=== PATIENT | female | born 1995 | race Caucasian/White ===

== ENCOUNTER 2020-03-21 16:08 | Emergency (ER) | payer OTHER ==
--- NOTE | 2020-03-21 16:47 | EDPHYS ---
Physician Documentation [facility] Name: Bj Green Age: 24 yrs Sex: Female : 1995 Arrival Date: 03/21/2020 Time: 16:11 Bed 11 Private MD: ED Physician Frank Rosenberg HPI: 03/21 17:06 This 24 yrs old Female presents to ER via Ambulatory with complaints of Wrist Injury. snw 17:06 The patient or guardian reports decreased range of motion, pain. The complaints affect snw the right wrist diffusely. Context: The problem was sustained at home, resulted from lifting or pulling, a heavy object, a repetitive motion. Onset: The symptoms/episode began/occurred suddenly, 4 day(s) ago, and became worse and became persistent. Associated signs and symptoms: Pertinent positives: tingling distally, swelling. The patient has not experienced similar symptoms in the past. It is unknown whether or not the patient has recently seen a physician. pt was moving furniture and heavy objects over the weekend. Historical: - Allergies: 16:26 No Known Allergies; ss - Home Meds: 16:26 control [Active]; ss - PMHx: 16:26 None; ss - PSHx: 16:26 None; ss - Immunization history:: Adult Immunizations unknown. - Social history:: Smoking status: Patient denies any tobacco usage or history of. ROS: 16:54 Constitutional: Negative for fever, chills, and weight loss, Eyes: Negative for injury, snw pain, redness, and discharge, ENT: Negative for injury, pain, and discharge, Neck: Negative for injury, pain, and swelling, Cardiovascular: Negative for chest pain, palpitations, and edema, Respiratory: Negative for shortness of breath, cough, wheezing, and pleuritic chest pain, Abdomen/GI: Negative for abdominal pain, nausea, vomiting, diarrhea, and constipation, Back: Negative for injury and pain, : Negative for injury, bleeding, discharge, and swelling, Skin: Negative for injury, rash, and discoloration, Neuro: Negative for headache, weakness, numbness, tingling, and seizure, Psych: Negative for depression, anxiety, suicide ideation, homicidal ideation, and hallucinations. 16:54 MS/extremity: Positive for injury or acute deformity, decreased range of motion, pain, swelling, tenderness, tingling, of the dorsal aspect of right wrist up to right elbow. Exam: 16:52 Constitutional: This is a well developed, well nourished patient who is awake, alert, snw and in no acute distress. Head/Face: Normocephalic, atraumatic. Eyes: Pupils equal round and reactive to light, extra-ocular motions intact. Lids and lashes normal. Conjunctiva and sclera are non-icteric and not injected. Cornea within normal limits. Periorbital areas with no swelling, redness, or edema. ENT: Nares patent. No nasal discharge, no septal abnormalities noted. Tympanic membranes are normal and external auditory canals are clear. Oropharynx with no redness, swelling, or masses, exudates, or evidence of obstruction, uvula midline. Mucous membranes moist. Neck: Trachea midline, no thyromegaly or masses palpated, and no cervical lymphadenopathy. Supple, full range of motion without nuchal rigidity, or vertebral point tenderness. No Meningismus. Chest/axilla: Normal chest wall appearance and motion. Nontender with no deformity. No lesions are appreciated. Cardiovascular: Regular rate and rhythm with a normal S1 and S2. No gallops, murmurs, or rubs. Normal PMI, no JVD. No pulse deficits. Respiratory: Lungs have equal breath sounds bilaterally, clear to auscultation and percussion. No rales, rhonchi or wheezes noted. No increased work of breathing, no retractions or nasal flaring. Abdomen/GI: Soft, non-tender, with normal bowel sounds. No distension or tympany. No guarding or rebound. No evidence of tenderness throughout. Back: No spinal tenderness. No costovertebral tenderness. Full range of motion. Skin: Warm, dry with normal turgor. Normal color with no rashes, no lesions, and no evidence of cellulitis. Neuro: Awake and alert, GCS 15, oriented to person, place, time, and situation. Cranial nerves II-XII grossly intact. Motor strength 5/5 in all extremities. Sensory grossly intact. Cerebellar exam normal. Normal gait. Psych: Awake, alert, with orientation to person, place and time. Behavior, mood, and affect are within normal limits. 16:52 Musculoskeletal/extremity: Extremities: grossly normal except: noted in the dorsal aspect of right wrist: decreased ROM, swelling, tenderness, ROM: limited passive range of motion, limited active range of motion due to pain, limited passive range of motion due to pain, Circulation is intact in all extremities. Sensation intact. cap refill normal Compartment Syndrome exam of affected extremity: is normal. Vital Signs: 16:24 BP 141 / 92; Pulse 90; Resp 15; Temp 98.9(TE); Pulse Ox 100% on R/A; Weight 63.5 kg; ss Height 5 ft. 2 in. (157.48 cm); Pain 4/10; 16:24 Body Mass Index 25.61 (63.50 kg, 157.48 cm) ss MDM: 16:42 Patient medically screened. snw 16:50 Data reviewed: vital signs, nurses notes. Data interpreted: Pulse oximetry: on room air snw is 100 %. Interpretation: normal. Counseling: I had a detailed discussion with the patient and/or guardian regarding: the historical points, exam findings, and any diagnostic results supporting the discharge/admit diagnosis, the need for outpatient follow up, to return to the emergency department if symptoms worsen or persist or if there are any questions or concerns that arise at home. Response to treatment: There is no appreciated change of the patient's symptoms at this time. Special discussion: I have referred the patient to see his PCP for further evaluation of high blood pressure. Based on the history and exam findings, there is no indication for further emergent testing or inpatient evaluation. I discussed with the patient/guardian the need to see the orthopedic surgeon for further evaluation of the symptoms. I discussed with the patient/guardian the need to see the primary care provider for further evaluation of the symptoms. 03/21 16:46 Order name: Wrist Splint: velcro; Complete Time: 17:19 snw 03/21 16:46 Order name: Sling; Complete Time: 17:19 snw Administered Medications: No medications were administered Disposition: 18:59 Co-signature as Attending Physician, Frank Rosenberg MD I agree with the assessment and kdr plan of care. Disposition: 03/21/20 16:46 Discharged to Home. Impression: Other and unspecified sprain of wrist. - Condition is Stable. - Discharge Instructions: RICE for Routine Care of Injuries, Wrist Pain, Wrist Splint, How to Use a Sling, Wrist Sprain. - Prescriptions for Prednisone 20 mg Oral Tablet - take 2 tablet by ORAL route once daily for 5 days; 10 tablet. - Work release form, Medication Reconciliation Form, Thank You Letter, Antibiotic Education, Prescription Opioid Use form. - Follow up: Emergency Department; When: As needed; Reason: Worsening of condition. Follow up: Private Physician; When: 2 - 3 days; Reason: Recheck today's complaints, Continuance of care, Re-evaluation by your physician. Signatures: Frank Rosenberg MD MD kdr Waters, Shelly, NAUMKEAG OPERATOR-C NAUMKEAG OPERATOR-Peggyw Sabine Byrnes, PETAR RN Francheska Diop RN RN Corrections: (The following items were deleted from the chart) 17:20 16:46 03/21/2020 16:46 Discharged to Home. Impression: Other and unspecified sprain of hb wrist. Condition is Stable. Forms are Medication Reconciliation Form, Thank You Letter, Antibiotic Education, Prescription Opioid Use. Follow up: Emergency Department; When: As needed; Reason: Worsening of condition. Follow up: Private Physician; When: 2 - 3 days; Reason: Recheck today's complaints, Continuance of care, Re-evaluation by your physician. snw
--- NOTE | 2020-03-21 16:47 | ER ---
Nurse's Notes [facility] Name: Bj Green Age: 24 yrs Sex: Female : 1995 Arrival Date: 03/21/2020 Time: 16:11 Bed 11 Private MD: Diagnosis: Other and unspecified sprain of wrist Presentation: 03/21 16:24 Chief complaint: Patient states: R wrist pain since yesterday. Is getting worse. Denies ss any specific injury, but reports she is moving apartments and believes she tweaked her wrist carrying heavy items. Coronavirus screen: Proceed with normal triage. Patient denies a cough. Patient denies shortness of breath or difficulty breathing. Patient denies measured and/or subjective temperature greater than 100.4F prior to today's visit. Patient denies travel on a cruise ship or to a country the [facility] currently lists as an affected area. Patient denies contact with known and/or suspected case of COVID-19. Ebola Screen: Patient denies exposure to infectious person. Patient denies travel to an Ebola-affected area in the 21 days before illness onset. Initial Sepsis Screen: Does the patient meet any 2 criteria? No. Patient's initial sepsis screen is negative. Does the patient have a suspected source of infection? No. Patient's initial sepsis screen is negative. Risk Assessment: Do you want to hurt yourself or someone else? Patient reports no desire to harm self or others. Onset of symptoms was March 20, 2020. 16:24 Method Of Arrival: Ambulatory ss 16:24 Acuity: FARA 4 ss Historical: - Allergies: 16:26 No Known Allergies; ss - Home Meds: 16:26 control [Active]; ss - PMHx: 16:26 None; ss - PSHx: 16:26 None; ss - Immunization history:: Adult Immunizations unknown. - Social history:: Smoking status: Patient denies any tobacco usage or history of. Screenin:07 Abuse screen: Denies threats or abuse. Denies injuries from another. Nutritional ss screening: No deficits noted. Tuberculosis screening: Never had TB. Fall Risk None identified. Assessment: 17:07 General: Appears in no apparent distress. comfortable, Behavior is calm, cooperative, ss Denies fever, feeling ill, fatigue, chills. Pain: Complains of pain in right hand and dorsal aspect of right wrist Pain currently is 4 out of 10 on a pain scale. Quality of pain is described as aching, tender, Pain began 2-3 days ago. Is continuous. Neuro: Level of Consciousness is awake, alert, obeys commands, Oriented to person, place, time, situation. Cardiovascular: Capillary refill < 3 seconds is brisk in bilateral fingers. Cardiovascular: Pulses are palpable in right radial artery and left radial artery. Respiratory: Airway is patent Respiratory effort is even, unlabored, Respiratory pattern is regular, symmetrical. EENT: Oral mucosa is moist. Derm: Skin is intact, is healthy with good turgor, Skin is pink, warm \T\ dry. normal. Musculoskeletal: Range of motion: intact in all extremities, Swelling absent. Vital Signs: 16:24 BP 141 / 92; Pulse 90; Resp 15; Temp 98.9(TE); Pulse Ox 100% on R/A; Weight 63.5 kg; ss Height 5 ft. 2 in. (157.48 cm); Pain 4/10; 16:24 Body Mass Index 25.61 (63.50 kg, 157.48 cm) ED Course: 16:11 Patient arrived in ED. ag5 16:25 Triage completed. ss 16:26 Arm band placed on right wrist. ss 16:29 Aileen Covarrubias FNP-C is [facility]. snw 16:29 Frank Rosenberg MD is Attending Physician. snw 17:07 Patient has correct armband on for positive identification. Bed in low position. Call light in reach. 17:19 No provider procedures requiring assistance completed. Patient did not have IV access hb during this emergency room visit. Administered Medications: No medications were administered Outcome: 16:46 Discharge ordered by . snw 17:19 Discharged to home ambulatory. hb 17:19 Condition: stable 17:19 Discharge instructions given to patient, Instructed on discharge instructions, follow up and referral plans. medication usage, Demonstrated understanding of instructions, follow-up care, medications, splint care, Prescriptions given X 1. 17:20 Patient left the ED. hb Signatures: Aileen Covarrubias FNP-C FNP-Csnw Sabine Bynres RN RN Francheska Diop RN RN Mike Briceño ag5
[2020-03-21 17:26] VITALS: BP 141/92; TEMP 98.9; O2SAT 100
== END 2020-03-21 17:20 | disposition home or self-care (01) ==
LOC: ER 16:08
DX: S63.591A Other specified sprain of right wrist, initial encounter (principal); X50.0XXA Overexertion from strenuous movement or load, initial encounter; Y93.89 Activity, other specified; Y92.009 Unspecified place in unspecified non-institutional (private) residence as the place of occurrence of the external cause
CPT/HCPCS: 99282

== ENCOUNTER 2021-03-28 20:25 | Emergency (ER) | payer BC, OTHER ==
--- OUTSIDE RECORDS SUMMARY | 2021-03-28 20:28 | XMS REPORT | Continuity of Care Document ---
:1995 Author Organization [facility] t Address [address] [place] [address] Care Team Providers Name Role Phone Nurse, Urgent Care Attending Clinician Unavailable Doctor Unassigned, Name Attending Clinician Unavailable Provider, Urgent Care Attending Clinician Unavailable Lab, Fam Pob I Attending Clinician Unavailable Problems This patient has no known problems. Allergies, Adverse Reactions, Alerts This patient has no known allergies or adverse reactions. Medications This patient has no known medications. Procedures This patient has no known procedures. Encounters Start End Encounter Admission Attending Care Care Encounter Source Date/Time Date/Time Type Type Clinicians Facility Department ID 2021-03-28 2021-03-28 Nurse Nurse, [facility] [id number] 18:32:49 18:47:49 Visit Urgent Care Health [id number] [place] [id number] [place] [phone] nal [address] 2021-03-28 2021-03-28 Orders Doctor SEBASTIAN [id number] 00:00:00 00:00:00 Only Unassigned, DHARMESH [id number] [place] [facility] [id number] 2020-09-08 2020-09-08 Urgent Provider, NVDASHA [id number] 16:47:13 17:33:27 Care [facility] Urgent Health [id number] Care [place] [id number] [place] [phone] nal [address] 2020-09-02 2020-09-02 Laboratory Lab, [facility] [id number] 19:25:19 19:45:19 Only Fam Pob I Health [id number] [place] [id number] [facility] [phone] nal 0[address] 2020-08-30 2020-08-30 Laboratory Lab, [facility] [id number] 18:45:55 19:05:55 Only Fam Pob I Health [id number] [place] [id number] Professio [phone] nal 044 [address] 2020-08-30 2020-08-30 Letter Doctor SEBASTIAN [id number] 00:00:00 00:00:00 (Out) Unassigned, DHARMESH [id number] [place] [facility] [id number] [id number] Results This patient has no known results.
[2021-03-28 21:10] LABS: Urine Blood 2+ (Negative); Urine Glucose Negative (Negative); Urine Protein 3+ (Negative); Urine Specific Gravity 1.015 (1.005-1.030)
[2021-03-28 21:26] LABS: Urine Bacteria 20-50 /HPF (<20); Urine Mucus 2+ /HPF (NONE SEEN)
[2021-03-28 21:55] LABS: Urine Specific Gravity/Preg 1.015 (1.005-1.030)
[2021-03-28] MEDS ORDERED: IBUPROFEN 400 MG TAB ONE ×2 (22:56→23:11)
[2021-03-28] MEDS ORDERED: ONDANSETRON 4 MG/2 ML VIAL ONE (23:10)
[2021-03-28] MEDS ORDERED: CEFTRIAXONE/SWI 1gm 1 GM/10 ML SYR ONE (23:11)
[2021-03-28] MEDS ORDERED: NA CHLORIDE 0.9% 1,000 ML ONE (23:11)
[2021-03-28 23:36] LABS: Absolute Lymphocytes (CBC) 2.5 K/uL (0.7-4.9); Basophils % 0.2 % (0-1.3); Hematocrit 36.5 % (36.0-45.0); Lymphocytes % 14.3 % (15.3-44.8); MPV 8.6 fL (7.6-11.3); RBC Red Blood Cell Count 4.19 M/uL (3.86-4.86)
[2021-03-28 23:42] LABS: Bilirubin Direct 0.1 mg/dL (0-0.2); Bilirubin Total 0.5 mg/dL (0.2-1.0); Protein, Total 8.2 g/dL (6.4-8.2)
--- NOTE | 2021-03-29 00:24 | EDPHYS ---
Physician Documentation [facility] Name: Bj Green Age: 25 yrs Sex: Female : 1995 Arrival Date: 03/28/2021 Time: 20:28 Bed 13 Private MD: ED Physician Juan Garcia HPI: 03/28 22:45 This 25 yrs old Female presents to ER via Ambulatory with complaints of cp Fever, Chest Pain, Low Back Pain. 22:45 The patient reports fever, with an emergency department temperature of 102.7 degrees cp Fahrenheit. 22:45 Onset: The symptoms/episode began/occurred 4 day(s) ago. cp 22:45 Associated signs and symptoms: Pertinent positives: nausea and vomiting, dysuria, cp Pertinent negatives: constipation, diarrhea, headache, shortness of breath, vaginal discharge. 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 - Social history:: Smoking status: . ROS: 22:50 Eyes: Negative for injury, pain, redness, and discharge. cp 22:50 Constitutional: Positive for fever, poor PO intake. 22:50 ENT: Negative for ear pain, sore throat, difficulty swallowing, difficulty handling secretions. 22:50 Cardiovascular: Positive for chest pain, of the lower chest. 22:50 Respiratory: Negative for shortness of breath, wheezing. 22:50 Abdomen/GI: Positive for abdominal pain, nausea, vomiting, Negative for diarrhea, constipation. 22:50 Back: Positive for flank pain, bilaterally. 22:50 : Positive for urinary symptoms, Negative for vaginal bleeding, vaginal discharge. 22:50 Neuro: Negative for altered mental status, headache, syncope, weakness. 22:50 All other systems are negative. Exam: 22:55 Constitutional: The patient appears in no acute distress, alert, awake, cp non-diaphoretic, non-toxic, well developed, well nourished, febrile. 22:55 Head/Face: Normocephalic, atraumatic. cp 22:55 Eyes: Periorbital structures: appear normal, Conjunctiva: normal, no exudate, no injection, Sclera: no appreciated abnormality, Lids and lashes: appear normal, bilaterally. 22:55 ENT: External ear(s): are unremarkable, Nose: is normal, Mouth: Lips: moist, Oral mucosa: moist, Posterior pharynx: Airway: no evidence of obstruction, patent. 22:55 Neck: ROM/movement: is normal, is supple, without pain, no range of motions limitations, no meningismus. 22:55 Chest/axilla: Inspection: normal, Palpation: is normal, no crepitus, no tenderness. 22:55 Cardiovascular: Rate: tachycardic, Rhythm: regular. 22:55 Respiratory: the patient does not display signs of respiratory distress, Respirations: normal, no use of accessory muscles, no retractions, labored breathing, is not present, Breath sounds: are clear throughout, no decreased breath sounds. 22:55 Abdomen/GI: Inspection: abdomen appears normal, Bowel sounds: active, all quadrants, Palpation: soft, in all quadrants, mild abdominal tenderness, in the right lower quadrant and left lower quadrant. 22:55 Back: ROM is normal, CVA tenderness, that is mild, is noted bilaterally. 22:55 Skin: no rash present. 22:55 Neuro: Orientation: to person, place \T\ time. Mentation: is normal, Motor: moves all fours, strength is normal. Vital Signs: 20:54 BP 126 / 78; Pulse 126; Resp 20; Temp 102.7; Pulse Ox 100% on R/A; Weight 65.32 kg (M); bb Height 5 ft. 2 in. (157.48 cm); Pain 7/10; 23:29 BP 101 / 68; Pulse 97; Resp 16; Temp 99.8; Pulse Ox 100% on R/A; ak2 03/29 00:23 BP 105 / 71; Pulse 87; Resp 16; Temp 98.7; Pulse Ox 98% on R/A; ak2 03/28 20:54 Body Mass Index 26.34 (65.32 kg, 157.48 cm) bb MDM: 03/28 22:36 Patient medically screened. cp 03/29 00:24 Data reviewed: vital signs, nurses notes, lab test result(s), radiologic studies, CT cp scan. 00:24 Differential diagnosis: pneumonia UTI, appendicitis, Pelvic Inflammatory Disease, cp Pyelonephritis, urinary tract infection, sepsis. Counseling: I had a detailed discussion with the patient and/or guardian regarding: the historical points, exam findings, and any diagnostic results supporting the discharge/admit diagnosis, lab results, radiology results, the need for outpatient follow up, a family practitioner, to return to the emergency department if symptoms worsen or persist or if there are any questions or concerns that arise at home. Response to treatment: the patient's symptoms have markedly improved after treatment, patient is well hydrated. and as a result, I will discharge patient. ED course: VSS. Patient tolerating po fluids. Appears non-toxic. Will discharge to home for continued monitoring. 03/28 21:09 Order name: Urine Microscopic Only; Complete Time: 22:31 kg 03/29 00:12 Interpretation: Normal except: UWBC >50; URBC 5-10; UBACT 20-50. 03/28 21:10 Order name: Urine Dipstick-Ancillary; Complete Time: 22:31 EDAZ 03/28 22:32 Interpretation: Normal except: UKET 3+; UBLD 2+; UPROT 3+; U NIT Positive; UESTR 3+. 03/28 21:12 Order name: Urine Culture 03/28 21:12 Order name: Urine --Ancillary (enter results) tt3 03/28 21:13 Order name: Urine --Ancillary; Complete Time: 22:31 EDAZ 03/28 22:41 Order name: Basic Metabolic Panel 03/28 22:41 Order name: CBC with Diff 03/29 00:12 Interpretation: Normal except: WBC 17.80; RDW 11.8; LYM% 14.3; MN% 16.3; NEUT A 12.3; cp MNA 2.9. 03/28 22:41 Order name: Hepatic Function; Complete Time: 00:11 03/29 00:11 Interpretation: Normal except: A/G 0.6; GLOB 5.2; ALB 3.0. 03/28 22:41 Order name: Lipase; Complete Time: 00:11 03/28 22:41 Order name: CT Abd/Pelvis - IV Contrast Only 03/28 22:41 Order name: Basic Metabolic Panel; Complete Time: 00:11 EDMS 03/29 00:12 Interpretation: Normal except: NA 131; CO2 20. cp 03/28 23:37 Order name: Manual Differential EDMS 03/28 21:12 Order name: Urine Test (obtain specimen); Complete Time: 21:13 tt3 03/28 22:41 Order name: IV Saline Lock cp 03/28 22:41 Order name: Labs collected and sent 03/29 00:19 Order name: PO challenge cp Administered Medications: 03/28 22:51 Drug: Motrin (ibuprofen) 800 mg Route: PO; ak2 22:58 Drug: Rocephin - (cefTRIAXone) 1 grams Route: IVPB; Infused Over: 30 mins; Site: right ak2 antecubital; 22:59 Drug: NS 0.9% 1000 ml Route: IV; Rate: 1 bolus; Site: right antecubital; ak2 22:59 Drug: Zofran (Ondansetron) 4 mg Route: IVP; Site: right antecubital; ak2 Disposition: 03/29 06:37 Co-signature as Attending Physician, Juan Garcia MD. [email or web address] Disposition Summary: 03/29/21 00:24 Discharge Ordered Location: Home cp Problem: new cp Symptoms: have improved cp Condition: Stable cp Diagnosis - Pyelonephritis acute - left cp Followup: cp - With: Private Physician - When: 2 - 3 days - Reason: Worsening of condition Discharge Instructions: - Discharge Summary Sheet cp - Pyelonephritis, Adult cp - Urinary Tract Infection, Adult cp Forms: - Medication Reconciliation Form cp - Thank You Letter cp - Antibiotic Education cp - Prescription Opioid Use cp - Work release form ak2 Prescriptions: - Ibuprofen 800 mg Oral Tablet - take 1 tablet by ORAL route every 8 hours As needed take with food; 30 tablet; cp Refills: 0, Product Selection Permitted - Zofran 4 mg Oral Tablet - take 1 tablet by ORAL route every 12 hours As needed; 20 tablet; Refills: 0, cp Product Selection Permitted - Bactrim DS 800-160 mg Oral Tablet - take 1 tablet by ORAL route every 12 hours for 10 days; 20 tablet; Refills: 0, cp Product Selection Permitted Signatures: Dispatcher [facility] Margo Montague RN RN Jerry Stone PA PA cp Holmes, Juan, MD MD mh7 Urmila, Marcus tt3 Isabel Duncan, PETAR RN kg Ross Garcia ak2 Corrections: (The following items were deleted from the chart) 03/28 21:02 21:01 PMHx: Unable to Obtain; fredy daniel 03/29 00:24 00:24 UTI/ Urinary tract infection, site not specified cp cp 02:03/28 22:20 Constitutional: Positive for fever, poor PO intake, cp cp 03/29 02:00 03/28 22:20 Respiratory: Negative for shortness of breath, wheezing, cp cp 03/29 02:00 03/28 22:20 Abdomen/GI: Positive for abdominal pain, nausea, vomiting, Negative for cp diarrhea, constipation, cp 03/29 02:00 03/28 22:20 Cardiovascular: Positive for chest pain, of the lower chest, cp cp 03/29 02:00 03/28 22:20 Eyes: Negative for injury, pain, redness, and discharge, cp cp 03/29 02:00 03/28 22:20 ENT: Negative for ear pain, sore throat, difficulty swallowing, difficulty cp handling secretions, cp 03/29 02:00 03/28 22:20 Back: Positive for flank pain, bilaterally, cp cp 03/29 02:00 03/28 22:20 : Positive for urinary symptoms, Negative for vaginal bleeding, vaginal cp discharge, cp 03/29 02:00 03/28 22:20 Neuro: Negative for altered mental status, headache, syncope, weakness, cp cp 03/29 02:00 03/28 22:20 All other systems are negative, cp cp
--- NOTE | 2021-03-29 00:24 | ER ---
Nurse's Notes [facility] Name: Bj Green Age: 25 yrs Sex: Female : 1995 Arrival Date: 03/28/2021 Time: 20:28 Bed 13 Private MD: Diagnosis: Pyelonephritis acute-left Presentation: 03/28 20:54 Chief complaint: Patient states: Left lower abdominal pain that radiates to back x 4 bb days. Pt went to urgent care and was told her pulse and temp was elevated and to come to ER. Pt took 500 mg tylenol at 2100. Coronavirus screen: Client denies travel out of the [place] in the last 14 days. At this time, unable to obtain information related to travel outside the [place] At this time, the client does not indicate any symptoms associated with coronavirus-19. Ebola Screen: Patient negative for fever greater than or equal to 101.5 degrees Fahrenheit, and additional compatible Ebola Virus Disease symptoms Patient denies exposure to infectious person. Patient denies travel to an Ebola-affected area in the 21 days before illness onset. Initial Sepsis Screen: Does the patient meet any 2 criteria? Temp <36.0*C (96.8*F)) or > 38.3*C (100.9*F). HR > 90 bpm. Yes Does the patient have a suspected source of infection? Yes: Dysuria/Frequency/Urgency/UTI. Risk Assessment: Do you want to hurt yourself or someone else? Patient reports no desire to harm self or others. Onset of symptoms was March 24, 2021. 20:54 Method Of Arrival: Ambulatory bb 20:54 Acuity: FARA 3 bb Triage Assessment: 20:59 General: Appears in no apparent distress. Behavior is calm, cooperative, appropriate bb for age, quiet. Pain: Complains of pain in left upper quadrant and left lower quadrant Pain radiates to left low back and left mid back Pain currently is 7 out of 10 on a pain scale. at worst was 10 out of 10 on a pain scale. level that patient reports is acceptable is 3 out of 10 on a pain scale. Quality of pain is described as sharp, stabbing, Pain began 2-3 days ago. Is intermittent. EENT:. Cardiovascular: No deficits noted. Reports nausea. : Reports pain upper quadrant(s) lower quadrant(s) in lower back with urination, Pain is 7 out of 10 on a pain scale. urgency, urinary frequency. 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 - Social history:: Smoking status: . Screenin:59 Abuse screen: Denies threats or abuse. Denies injuries from another. Nutritional bb screening: No deficits noted. Tuberculosis screening: No symptoms or risk factors identified. Fall Risk None identified. No fall in past 12 months (0 pts). No secondary diagnosis (0 pts). No IV (0 pts). Ambulatory Aid- None/Bed Rest/Nurse Assist (0 pts). Gait- Normal/Bed Rest/Wheelchair (0 pts) Mental Status- Oriented to own ability (0 pts). Total Haynes Fall Scale indicates No Risk (0-24 pts). Assessment: 23:29 Reassessment: Patient and/or family updated on plan of care and expected duration. Pain ak2 level reassessed. General: Appears in no apparent distress. Pain: Denies pain. Neuro: No deficits noted. Cardiovascular: No deficits noted. Cardiovascular: Rhythm is sinus rhythm. Respiratory: No deficits noted. Vital Signs: 20:54 BP 126 / 78; Pulse 126; Resp 20; Temp 102.7; Pulse Ox 100% on R/A; Weight 65.32 kg (M); bb Height 5 ft. 2 in. (157.48 cm); Pain 7/10; 23:29 BP 101 / 68; Pulse 97; Resp 16; Temp 99.8; Pulse Ox 100% on R/A; ak2 03/29 00:23 BP 105 / 71; Pulse 87; Resp 16; Temp 98.7; Pulse Ox 98% on R/A; ak2 03/28 20:54 Body Mass Index 26.34 (65.32 kg, 157.48 cm) ED Course: 03/28 20:28 Patient arrived in ED. wm 20:57 Triage completed. bb 20:59 Patient has correct armband on for positive identification. Pulse ox on. NIBP on. bb 20:59 No provider procedures requiring assistance completed. bb 22:28 Jerry Bradford PA is PHCP. cp 22:28 Juan Garcia MD is Attending Physician. cp 23:26 CT Abd/Pelvis - IV Contrast Only In Process Unspecified. EDMS 23:30 Patient placed in the treatment room, on a stretcher. ak2 Administered Medications: 22:51 Drug: Motrin (ibuprofen) 800 mg Route: PO; ak2 22:58 Drug: Rocephin - (cefTRIAXone) 1 grams Route: IVPB; Infused Over: 30 mins; Site: right ak2 antecubital; 22:59 Drug: NS 0.9% 1000 ml Route: IV; Rate: 1 bolus; Site: right antecubital; ak2 22:59 Drug: Zofran (Ondansetron) 4 mg Route: IVP; Site: right antecubital; ak2 Outcome: 03/29 00:24 Discharge ordered by MD. cp 00:26 Discharged to home ambulatory. ak2 00:26 Condition: good 00:44 Patient left the ED. ak2 Signatures: Dispatcher [employer] EDMS Margo Montague RN RN Jerry Stone PA PA cp [place], Anthony ak2 Ava Saldaña Corrections: (The following items were deleted from the chart) 03/28 21:02 21:01 PMHx: Unable to Obtain; fredy daniel
[2021-03-29 00:54] VITALS: BP 105/71; TEMP 98.7; O2SAT 98
[2021-03-29 01:20] LABS: Blood Morphology Comment NOT SEEN (NOT SEEN); Platelet Estimate ADEQ
--- NOTE | 2021-03-29 11:13 | RAD REPORT ---
EXAM DESCRIPTION: CTAbdomen Pelvis W Contrast03/29/2021 6:41 am CLINICAL HISTORY: The patient is 25 years old and is Female; ABD PAIN TECHNIQUE: Axial computed tomography images of the abdomen and pelvis with intravenous contrast. S agittal and coronal reformatted images were created and reviewed. This CT exam was performed using one or more of the following dose reduction techniques: automated exposure control, adjustment of t he mA and/or kV according to patient size, and/or use of iterative reconstruction technique. COMPARISON: No relevant prior studies available. FINDINGS: Lung bases: Unremarkable. No mass. No consolidation. ABDOMEN: Liver: Unremarkable. No mass. Gallbladder and bile ducts: Unremarkable. No calcified stones. No ductal dilation. Pancreas: Unremarkable. No mass. No ductal dilation. Spleen: Unremarkable. No splenomegaly. Adrenals: Unremarkable. No mass. Kidneys and ureters: Heterogeneous appearance to the left kidney. No hydronephrosis. Stomach and bowel: Unremarkable. No obstruction. No mucosal thickening. PELVIS: Appendix: No findings to suggest acute appendicitis. Bladder: Diffuse bladder wall thickening. Reproductive: Unremarkable as visualized. ABDOMEN and PELVIS: Intraperitoneal space: Unremarkable. No free air. No significant fluid collection. Bones/joints: No acute fracture. No dislocation. Soft tissues: Unremarkable. Vasculature: Unremarkable. No abdominal aortic aneurysm. Lymph nodes: Unremarkable. No enlarged lymph nodes. IMPRESSION: 1. Heterogeneous appearance to the left kidney. Findings are nonspecific but concern ing for pyelonephritis/UTI. Recommend follow-up imaging to resolution to exclude an underlying proces s. 2. Diffuse bladder wall thickening. Findings are suggestive of cystitis or other infiltrative pro cess. Electronically signed by: Juwan Zamora MD 03/29/2021 12:00 AM CDT Due to temporary technical issues with the PACS/Fluency reporting system, reports are being signed by the in house radiologist without review as a courtesy to ensure prompt reporting. The interpreting r adiologist is fully responsible for the content of the report.
== END 2021-03-29 00:44 | disposition home or self-care (01) ==
LOC: ER 20:25
DX: N10 Acute pyelonephritis (principal)
CPT/HCPCS: 87088; 85025; 87086; 80048; 36415; 81025; 82565; 80076; 87077; 87186; 83690; 74177; 96375; 96374; 99284; Q9967; J0696; J7030; J2405; 81003; 81015